=== PATIENT | female | born 1960 | race Caucasian/White ===

== ENCOUNTER 2016-08-29 10:54 | Emergency (ER) | payer OTHER ==
--- NOTE | 2016-08-29 11:51 | DIAGNOSTIC IMAGING REPORT ---
PROCEDURE: XR CHEST 2 VIEW INDICATION: SHORTNESS OF BREATH TECHNIQUE: PA and lateral views. COMPARISON: None. FINDINGS: Lungs are clear. Heart and mediastinum are normal. Thorax is normal. IMPRESSION: 1. Negative chest.
--- NOTE | 2016-08-29 13:32 | ED ORDER SUMMARY ---
..... Patient: DO HARRISON OrderSheet [facility] VisitID: [id number] [address] [place] [address] 56y, F Registration Date/Time: 08/29/2016 ORDER SHEET Weight: 76.2 kg (stated) Allergies: None GENERAL ORDERS: Chest 2V Urgent (:[facility]/2016 [facility] (Ack 11:44 LTapper) (11:48 JBoardley R.N.) Classification Clerk (Continuous) (08/29/2016 [facility]) (Ack 11:27 JBoardley R.N.) (11:53 JBoardley R.N.) UA-Culture if indicated Urgent (08/29/2016 PHakson DO) (Ack 11:44 LTapper) (11:53 JBoardley R.N.) Cardiac Panel Stat (08/29/[address] [facility] [address] (Ack 11:44 LTapper) (11:53 JBoardley R.N.) BNP Urgent (:08/29/2016 PHakchinson DO) (Ack 11:44 LTapper) (11:53 JBoardley R.N.) D-Dimer Urgent (08/29/2016 PHakchinson DO) (Ack 11:44 LTapper) (11:53 JBoardley R.N.) Amylase Urgent (08/29/2016 PHakchinson DO) (Ack 11:44 LTapper) (11:53 JBoardley R.N.) PT with INR Urgent (:08/29/2016 PHakchinson DO) (Ack 11:44 LTapper) (11:53 JBoardley R.N.) TSH Urgent (08/29/2016 PHakchinson DO) (Ack 11:44 LTapper) (11:53 JBoardley R.N.) Urine Drug Screen Urgent (08/29/2016 [facility] (Ack 11:44 LTapper) (11:53 JBoardley R.N.) Oxygen (2 L/min) (NC) (11:25 08/29/2016 [facility]) (Ack 11:27 JBoardley R.N.) (11:53 JBoardley R.N.) Pulse oximeter (11:08/29/2016 [facility]) (Ack 11:28 JBoardley R.N.) (11:53 JBoardley R.N.) EKG - ER Stat (11:08/29/2016 [facility]) (Ack 11:45 LTapper) (11:48 JBoardley R.N.) Vitals (11:08/29/2016 [facility]) (Ack 11:28 JBoardley R.N.) (11:53 JBoardley R.N.) MEDICATION ORDERS: IV FLUIDS: IV NS : initial bolus 500 mL (1000 mL/hr), then 250 mL/hr for X2 (NOW) (11:24 08/29/2016 [facility]) (Ack 11:27 JBoardley R.N.) (11:53 JBoardley R.N.) Zofran IV 4 mg (NOW) (13:46 08/29/2016 Radhay R.N. verbal order read back to [facility]) (13:47 JBoardley R.N.) ORDER SHEET NOTES: [Electronically signed by Demar Feliciano R.N. (18:46 08/29/2016)] [Electronically signed by Allan Nair DO (12:23 08/30/2016)] [Electronically locked/signed by Demar Feliciano R.N. (18:46 08/29/2016)]
--- NOTE | 2016-08-29 13:32 | ED CLINICAL REPORT ---
Clinical Report - Physicians/Mid Levels [facility] [address] [place] [address] 08/29/2016 10:59 Patient: DO HARRISON Time Seen: 11:10. Arrived- By private vehicle. Historian- patient. HISTORY OF PRESENT ILLNESS Chief Complaint: BLOOD PRESSURE ELEVATED. This started today and is still present. It was gradual in onset and has been waxing/waning. At its maximum, severity described as moderate. When seen in the E.D., severity described as mild. Modifying factors- (atenolol seems to have helped). The patient has had fatigue. Denies sleep problem. No muscle aches or weakness. (She notes some right neck pain- worse with movement or "pushing on it"). Similar symptoms previously: Recent medical care: Not recently seen/assessed. REVIEW OF SYSTEMS No fever, sore throat, cough, difficulty breathing or chest pain. No abdominal pain, nausea, vomiting, diarrhea or black stools. No bloody stools, chills, difficulty with urination, skin rash or back pain. No calf pain or double vision. The patient has had sinus drainage and nasal congestion. She has had a moderate, dull global headache. The headache has been similar to previous ones. No difficulty with ambulation. She has had mild, intermittent palpitations. The palpitations have lasted only seconds. The palpitations seem rapid. It has been similar to previous symptoms. All systems otherwise negative, except as recorded above. PAST HISTORY See nurses notes. Hypertension. PCP: Dr Vogel. Surgeries: Right lower extremity fracture repair (ankle). Medications: Atenolol Oral 100 mg, daily. Allergies: None. SOCIAL HISTORY Never smoker. No alcohol use or drug use. Residence: [place]. Patient is employed. (works at [employer]). ADDITIONAL NOTES The nursing notes have been reviewed. PHYSICAL EXAM Vital Signs: 08/29/2016 11:06 BP: 151/91. HR: 58. RR: 18. O2 saturation: 100%. Temp: 98.2 F. Appearance: Alert. Anxious. Patient in mild distress. Eyes: No scleral icterus or pale conjunctivae. ENT: Pharynx normal. No pharyngeal erythema or tonsillar exudate. The mucous membranes are not dry. Neck: Normal inspection. Neck supple. CVS: Normal heart rate and rhythm. Heart sounds normal. Pulses normal. Respiratory: No respiratory distress. Abdomen: No visible injury. Soft and nontender. Back: Normal inspection. Skin: Skin warm and dry. Normal skin color. Normal skin turgor. Extremities: Extremities exhibit normal ROM. No lower extremity edema. Neuro: Oriented X 3. No motor deficit. No sensory deficit. LABS, X-RAYS, AND EKG EKG: EKG time: (11:43). Normal sinus rhythm. Rate: 60. Normal P waves. Normal TONY. Normal QRS complex. Normal axis. Normal ST and T waves. The study has been interpreted contemporaneously by me. The EKG appears to be a good tracing. Laboratory Tests: UA-Culture if indicated: (KRISTAN: 08/29/2016 11:40) ( [facility] 08/29/2016 12:13) Final results Test Result Flag Units (Reference) URINE COLOR YELLOW URINE APPEARANCE CLEAR URINE GLUCOSE NEGATIVE (NEGATIVE) URINE BILIRUBIN NEGATIVE (NEGATIVE) URINE KETONE NEGATIVE (NEGATIVE) URINE SPECIFIC GRAVITY 1.010 (1.010-1.030) URINE PH 7.0 (5.0-8.0) URINE PROTEIN NEGATIVE (NEGATIVE) URINE UROBILINOGEN 0.2 EU/dL (0.2-1.0) URINE NITRITE NEGATIVE (NEGATIVE) URINE BLOOD NEGATIVE (NEGATIVE) URINE LEUK ESTERASE POSITIVE (NEGATIVE) URINE RBC NONE SEEN rbc/hpf (0-1) URINE WBC 1-3 wbc/hpf (0-1) URINE EPITHELIAL CELLS 1-3 EPI/hpf (0-5) URINE BACTERIA TRACE (<1+) (NONE SEEN) URINE COMMENT CULTURE INDICATED URINE CULTURES ARE SET-UP BASED ON THE FOLLOWING CRITERIA:POSITIVE NITRITEPOSITIVE LEUKOCYTE ESTERASEGREATER THAN 10 WHITE BLOOD CELLSMODERATE (2+) OR GREATER BACTERIA CBC w Diff: (KRISTAN: 08/29/2016 11:55) ( [facility] 08/29/2016 12:06) Final results Test Result Flag Units (Reference) WHITE BLOOD COUNT 11.2 K/uL (4.5-11.5) RED BLOOD COUNT 5.26 H M/uL (4.00-5.20) HEMOGLOBIN 14.9 gm/dL (12.0-16.0) HEMATOCRIT 45.3 % (36.0-46.0) MEAN CELL VOLUME 86 fL (80-100) MEAN CORPUSCULAR HGB 28 pg (26-34) MEAN CORPUSCULAR HGB CONC 33 g/dL (31-37) RED CELL DISTRIBUTION WIDTH 13.1 % (11.6-14.8) PLATELET COUNT 462 H K/uL (150-400) LYMPH % 15.0 L % (25-40) MONO % 2.8 L % (3-14) GRANULOCYTE % 82.2 (53-90) PT with INR: (KRISTAN: 08/29/2016 11:55) ( MsgRcvd 08/29/2016 12:18) Final results Test Result Flag Units (Reference) INR 1.0 (0.8-1.2) Low Intensity Therapy: INR 1.5-2.0 PT range 18.5-23.1Mod.Intensity Therapy: INR 2.0-3.0 PT range 23.1-31.5High Intensity Therapy: INR 2.5-3.5 PT range 27.4-35.5High Intensity Therapy 2: INR 3.0-4.0 PT range 31.5-39.3 D-DIMER QUANTITATIVE < 0.27 L ug/mLFEU (0.27-0.52) The primary value of this quantitative assay relates toits negative predictive value (i.e. exclusion) of pulmonaryembolism/deep vein thrombosis/DIC.Elevated levels of d-dimer may also occur with:, age, cancer, inflammation, liver disease,post-op, infection, hematoma, coronary disease, peripheralarteriopathy, bleeding disorders and thrombolytic treatment.Results should be correlated with other clinical andradiological data.Testing Methodology: Latex Immunoassay Urine Drug Screen: (KRISTAN: 08/29/2016 11:40) ( MsgRcvd 08/29/2016 12:15) Final results Test Result Flag Units (Reference) AMPHETAMINE/METHAMPHETAMINE NEGATIVE (NEGATIVE) BARBITURATE NEGATIVE (NEGATIVE) BENZODIAZEPINE NEGATIVE (NEGATIVE) CANNABINOID NEGATIVE (NEGATIVE) COCAINE NEGATIVE (NEGATIVE) ECSTASY NEGATIVE (NEGATIVE) METHADONE NEGATIVE (NEGATIVE) OPIATE NEGATIVE (NEGATIVE) The urine drug screen is a qualitative screening test fordrug overdose and abuse. All screen results should beconsidered as presumptive.Drugs screened for are as follows:BenzodiazepinesCocaineAmphetamines/MetamphetaminesTHC (Tetrahydrocannabinol)OpiatesBarbituratesEcstasyMethadonePositive results are unconfirmed. For confirmation, notifythe lab for the specimen to be sent to the reference lab.All confirmations must be performed by a differentmethodology.The ingestion of natural herbal and plant productscontaining Ephedra/Ephedra metabolites can produce in urineone or more substances capable of cross reacting withamphetamine/methamphetamine immunoassays. These testsprovide a preliminary result only. A more specificalternative chemical method must be used to obtain aconfirmed analytical result. BNP: (KRISTAN: 08/29/2016 11:55) ( [facility] 08/29/2016 12:35) Final results Test Result Flag Units (Reference) B-TYPE NATRIURETIC PEPTIDE 18.9 pg/ml (5-100) CHEM 13 PANEL: (KRISTAN: 08/29/2016 11:55) ( [facility] 08/29/2016 14:29) Final results Test Result Flag Units (Reference) GLUCOSE 105 mg/dL (70-110) BUN 10 mg/dL (7-18) CREATININE 0.8 mg/dL (0.6-1.3) Estimated GFR >60 mL/min Estimated GFR- >60 mL/min Note: Persistent reduction over 3 months in eGFR<60 mL/min/1.73 m2 defines CKD. Patients with eGFR values>=60 mL/min/1.73 m2 may also have CKD if evidence ofpersistent proteinuria. Additional information may be foundat www.kidney.org. SODIUM 142 mmol/L (136-145) POTASSIUM 4.0 mmol/L (3.5-5.1) CHLORIDE 106 mmol/L (98-107) CARBON DIOXIDE 26 mmol/L (21-32) CALCIUM 9.9 mg/dL (8.5-10.1) TOTAL PROTEIN 7.9 g/dL (6.4-8.2) ALBUMIN 4.0 g/dL (3.3-5.0) BILIRUBIN, TOTAL 0.7 mg/dL (0.0-1.0) ALKALINE PHOSPHATASE 77 U/L (46-116) AST (SGOT) 28 U/L (15-37) ALT (SGPT) 39 U/L (12-78) MAGNESIUM 2.2 mg/dL (1.8-2.4) AMYLASE 98 U/L (25-115) CPK 193 U/L (24-260) TROPONIN I <0.05 ng/mL (0.00-1.5) TROPONIN REFERENCE RANGE:<0.1 NEGATIVE0.1-1.5 INDETERMINANT>1.5 POSITIVE THYROID STIMULATING HORMONE 0.990 uIU/mL (0.30-3.74) Culture, Urine: (KRISTAN: 08/29/2016 11:40) ( MsgRcvd 08/30/2016 10:06) IP Test Result Flag Units (Reference) CULTURE, URINE DATE: 08/30/16 PRELIM REPORT: PRELIMINARY REPORT #1 VERY EARLY GROWTH: VERY EARLY GROWTH: CULTURE TOO YOUNG FOR WORKUP-REINCUBATED . Pulse Oximetry: 08/29/2016 11:06 O2 saturation: 100%. (FIO2 - room air). Interpretation: normal. PROGRESS AND PROCEDURES Course of Care: Normal Saline 1 liter IVPB given. Pt had episode of sinus bradycardia (HR 45), no other ectopy. Unclear if she had a vagal episode causing the bradycardia. She had had URI symptoms which may cause nausea (viral syndrome) which may have vagal stimulation. Patient/family counseled. Disposition: Discharged. Condition: stable and improved. CLINICAL IMPRESSION Moderate nausea. No vomiting. Acute dizziness Essential hypertension. Acute urinary tract infection with cystitis. Acute viral (presumed) rhinitis. Acute viral syndrome INSTRUCTIONS (No driving if any symptoms of lightheadedness). Rest. Do not work for three days. Drink plenty of fluids. Warnings: Further evaluation is necessary in order to recheck abnormal lab, obtain test results and conduct further tests. It is very important to follow up with a physician. GENERAL WARNINGS: Return or contact your physician immediately if your condition worsens or changes unexpectedly, if not improving as expected, or if other problems arise. Your Current Medications: CONTINUE TAKING THE FOLLOWING MEDICATIONS: Atenolol Oral : 100 mg daily. Prescription Medications: Zofran (orally disintegrating tablets) 4 mg: take 1 orally every 6 hours as needed for nausea and vomiting. Dispense five (5). No refill. Substitution is permissible. Macrobid 100 mg: Take 1 capsule orally every 12 hours for 7 days. No refills. Substitution is permissible. Follow-up: Follow up with your doctor ; Address: [address] [place], [place] [address] [address] in about two days. Screening today revealed the patient's blood pressure to be in the hypertensive range. The patient should follow up with a primary care provider for blood pressure management. (Electronically signed by Allan Nair DO 08/30/2016 12:23)
--- NOTE | 2016-08-29 13:32 | ED NURSING NOTES ---
Clinical Report - Nurses [facility] [address] [place] [address] 08/29/2016 10:59 Patient: OD HARRISON TRIAGE Triage time 11:06. Acuity: LEVEL 4. Chief Complaint: (High Blood Pressure). 11:08/29/16. 11:08/29/16. Alert. No acute distress. SEPSIS SCREEN: Sepsis Screen. Negative (no infection suspected/documented). BENEDICT COMA SCORE: Hawthorne Coma Scale: 15- eyes open spontaneously (4); best verbal response- oriented x 4 (5); best motor response- obeys commands (6). --11:10 Demar Feliciano R.N. 11:06 08/29/16. BP: 151/91. HR: 58. RR: 18. O2 saturation: 100% on room air. Temp: 98.2 F (oral). --11:10 Demar Feliciano R.N. Weight: 76.2 kg stated. Height/Length: 62 inches Per Patient. BMI: 30.8. --11:08 Demar Feliciano R.N. Medications Atenolol Oral 100 mg, daily. --11:09 Demar Feliciano R.N. Medication/allergy information source: the patient. --11:10 Demar Feliciano R.N. Allergies None. --11:09 Demar Feliciano R.N. History Arrived by private vehicle. Historian: patient. Unaccompanied. Primary physician (Vogel). 11:08 08/29/16. This started today. Treatment LOCAL [employer]S ADMINSTRATOR: (Atenolol at 0600). PAST MEDICAL HX: Immunizations: up-to-date. SOCIAL HX: Never smoker. No alcohol use or drug use. No infectious disease exposure. ABUSE ASSESSMENT: No report of abuse. FALL RISK ASSESSMENT: Fall risk assessment completed. No fall risk identified. NUTRITIONAL RISK ASSESSMENT: The nutritional risk assessment revealed no deficiencies. FUNCTIONAL ASSESSMENT: Functional assessment: no impairments noted. LEARNING NEEDS ASSESSMENT: The learning needs assessment revealed no barriers. SKIN INTEGRITY ASSESSMENT: Skin integrity risk assessment completed. No skin integrity risk identified. --11:10 Demar Feliciano R.N. PROBLEMS: Hypertension. --11: Demar Feliciano R.N. ADDITIONAL SURGERIES: Ankle. --11:09 Demar Feliciano R.N. Assessment 11:08 08/29/16. --11:10 Demar Feliciano R.N. Interventions 11:08/29/16. 11:08/29/16. ID and allergy band on patient. To treatment room. --11:10 Demar Feliciano R.N. PHYSICAL ASSESSMENT 11:08/29/16. GENERAL / NEURO / PSYCH: Alert. Oriented X 4. Appears in no acute distress. RESPIRATORY: Respirations not labored. SKIN: Skin is warm and dry. --11:10 Demar Feliciano R.N. 11:12 08/29/16. GENERAL / NEURO / PSYCH: ( c/o SON). --11:12 Demar Feliciano R.N. NURSING PROGRESS NOTES 11:08/29/16. The plan of care for this patient has been created. Pulse oximeter and NIBP monitor placed on patient. Patient gowned. Head of bed elevated. Two patient identifiers checked. Call light placed in reach. Side rails up x 2. Bed placed in lowest position. Brakes of bed on. Brakes of chair on. --11:11 Demar Feliciano R.N. 11:08/29/16. Patient ready for evaluation- chart flagged and notification provided. --11:11 Demar Feliciano R.N. 11:11 08/29/16. BP: 151/73. HR: 52. RR: 14. O2 saturation: 100% on room air. --11:11 Demar Feliciano R.N. 11:11 08/29/16. --11:11 Demar Feliciano R.N. 11:43 08/29/2016 Site #1 started via IV in the right antecubital space with an 20g angiocath, with aseptic technique and good blood return; one attempt. Blood drawn: rainbow set. Labeled in the presence of the patient and sent to the lab. Saline lock flushed with 10 mL saline. --11:53 Demar Feliciano R.N. 11:48 08/29/16. ( X-ray completed). --11:48 Demar Feliciano R.N. 11:48 08/29/16. Patient ID band checked for patient name and birthdate. Clean catch urine collected with return of whitley-colored urine; sample sent to lab for urinalysis, culture and drug screen. Specimen labeled in the presence of the patient. --11:48 Demar Feliciano R.N. 11:53 08/29/2016 Started bag #1 1000 mL IV Fluids IV NS (Saline); at 1000 mL/hr over 1 hour(s) via site #1 via IV pump. Allergies verified and confirmed 5 rights. IV patency established. IV site checked: no pain, redness, or swelling. IV flushed thoroughly pre- and post-medication administration. Completed per protocol. --11:53 Demar Feliciano R.N. 11:57 08/29/16. Cardiac rhythm: sinus bradycardia. The plan of care for this patient has been created. gambling monitor, pulse oximeter and NIBP monitor placed on patient; monitor alarms on. Head of bed elevated. --11:57 Demar Feliciano R.N. 11:56 08/29/16. BP: 131/75. HR: 53. RR: 20. O2 saturation: 100%. O2 started via nasal cannula at 2 liters/minute. Temp: 98.2 F (oral). --11:57 Demar Feliciano R.N. 11:57 08/29/16. Patient and family informed about reason for wait and about plan of care. --11:57 Demar Feliciano R.N. EKG time: (11:43 AM). EKG was performed by a tech and shown to the ED physician. --12:33 Yumiko Barrera 12:23 08/29/2016 IV Fluids IV NS via IV site #1 Rate Changed: bag #1 decreased to 250 mL/hr via IV pump. IV patency established. IV site checked: no pain, redness, or swelling. IV flushed thoroughly. --12:33 Demar Feliciano R.N. 13:03 08/29/16. BP: 138/87. HR: 44. RR: 18. O2 saturation: 100% on room air. --13:04 Demar Feliciano R.N. 13:04 08/29/16. Cardiac rhythm: sinus bradycardia. --13:04 Demar Feliciano R.N. 13:05 08/29/2016 IV Fluids IV NS Discontinued: bag #1 infused. Total amount infused: 1000 mL. IV patency established. IV site checked: no pain, redness, or swelling. IV flushed thoroughly. --13:05 Demar Feliciano R.N. 13:18 08/29/16. Patient informed about reason for wait and about plan of care. --13:18 Demar Feliciano R.N. 13:18 08/29/16. ED physician notified. Notified (bradycardia). --13:18 Demar Feliciano R.N. 13:18 08/29/16. Notified about vital signs and symptom. --13:18 Demar Feliciano R.N. 13:47 08/29/2016 Zofran (Ondansetron HCl) IVP 4 mg given over 2 minute(s) via site #1. Allergies verified and confirmed 5 rights. IV patency established. IV site checked: no pain, redness, or swelling. IV flushed thoroughly pre- and post-medication administration. IVP given by RN. --13:47 Demar Feliciano R.N. 13:47 08/29/16. --13:47 Demar Feliciano R.N. 13:47 08/29/16. BP: 115/68. HR: 47. RR: 16. O2 saturation: 100%. O2 started via nasal cannula at 2 liters/minute. --13:47 Demar Feliciano R.N. 13:48 08/29/16. Cardiac rhythm: sinus bradycardia. --13:48 Demar Feliciano R.N. DISPOSITION / DISCHARGE 14:15 08/29/16. BP: 112/64. HR: 59. RR: 17. O2 saturation: 100% on room air. Temp: 97.8 F (oral). Pain level now 0/10. --14:16 Kyle Veloz R.N. 14:12 08/29/2016 Site #1 removed upon discharge. Catheter intact. Bandage applied. --14:17 Kyle Veloz R.N. 14:16 08/29/16. Cardiac rhythm: sinus rhythm. Condition at departure: improved and stable. No learning barriers present. Discharge instructions provided and reviewed with the patient. Reviewed medication(s) side effects, precautions, dosing and course information. Prescription(s) given to the patient. Patient verbalized understanding. Written instructions provided in Serbian. The patient was discharged by the physician. She was discharged home. She left the Emergency Department ambulatory and via private vehicle. Patient driving. --14:16 Kyle Veloz R.N. Locked/Released at 08/29/2016 18:46 by Demar Feliciano R.N.
--- NOTE | 2016-08-29 13:32 | ED CLINICAL REPORT ---
Clinical Report - Physicians/Mid Levels [address] [place] [address] 08/29/2016 10:59 Patient: DO HARRISON Time Seen: 11:10. Arrived- By private vehicle. Historian- patient. HISTORY OF PRESENT ILLNESS Chief Complaint: BLOOD PRESSURE ELEVATED. This started today and is still present. It was gradual in onset and has been waxing/waning. At its maximum, severity described as moderate. When seen in the E.D., severity described as mild. Modifying factors- (atenolol seems to have helped). The patient has had fatigue. Denies sleep problem. No muscle aches or weakness. (She notes some right neck pain- worse with movement or "pushing on it"). Similar symptoms previously: Recent medical care: Not recently seen/assessed. REVIEW OF SYSTEMS No fever, sore throat, cough, difficulty breathing or chest pain. No abdominal pain, nausea, vomiting, diarrhea or black stools. No bloody stools, chills, difficulty with urination, skin rash or back pain. No calf pain or double vision. The patient has had sinus drainage and nasal congestion. She has had a moderate, dull global headache. The headache has been similar to previous ones. No difficulty with ambulation. She has had mild, intermittent palpitations. The palpitations have lasted only seconds. The palpitations seem rapid. It has been similar to previous symptoms. All systems otherwise negative, except as recorded above. PAST HISTORY See nurses notes. Hypertension. PCP: Dr Vogel. Surgeries: Right lower extremity fracture repair (ankle). Medications: Atenolol Oral 100 mg, daily. Allergies: None. SOCIAL HISTORY Never smoker. No alcohol use or drug use. Residence: [place]. Patient is employed. (works at [employer]). ADDITIONAL NOTES The nursing notes have been reviewed. PHYSICAL EXAM Vital Signs: 08/29/2016 11:06 BP: 151/91. HR: 58. RR: 18. O2 saturation: 100%. Temp: 98.2 F. Appearance: Alert. Anxious. Patient in mild distress. Eyes: No scleral icterus or pale conjunctivae. ENT: Pharynx normal. No pharyngeal erythema or tonsillar exudate. The mucous membranes are not dry. Neck: Normal inspection. Neck supple. CVS: Normal heart rate and rhythm. Heart sounds normal. Pulses normal. Respiratory: No respiratory distress. Abdomen: No visible injury. Soft and nontender. Back: Normal inspection. Skin: Skin warm and dry. Normal skin color. Normal skin turgor. Extremities: Extremities exhibit normal ROM. No lower extremity edema. Neuro: Oriented X 3. No motor deficit. No sensory deficit. LABS, X-RAYS, AND EKG EKG: EKG time: (11:43). Normal sinus rhythm. Rate: 60. Normal P waves. Normal TONY. Normal QRS complex. Normal axis. Normal ST and T waves. The study has been interpreted contemporaneously by me. The EKG appears to be a good tracing. Laboratory Tests: UA-Culture if indicated: (KRISTAN: 08/29/2016 11:40) ( [facility] 08/29/2016 12:13) Final results Test Result Flag Units (Reference) URINE COLOR YELLOW URINE APPEARANCE CLEAR URINE GLUCOSE NEGATIVE (NEGATIVE) URINE BILIRUBIN NEGATIVE (NEGATIVE) URINE KETONE NEGATIVE (NEGATIVE) URINE SPECIFIC GRAVITY 1.010 (1.010-1.030) URINE PH 7.0 (5.0-8.0) URINE PROTEIN NEGATIVE (NEGATIVE) URINE UROBILINOGEN 0.2 EU/dL (0.2-1.0) URINE NITRITE NEGATIVE (NEGATIVE) URINE BLOOD NEGATIVE (NEGATIVE) URINE LEUK ESTERASE POSITIVE (NEGATIVE) URINE RBC NONE SEEN rbc/hpf (0-1) URINE WBC 1-3 wbc/hpf (0-1) URINE EPITHELIAL CELLS 1-3 EPI/hpf (0-5) URINE BACTERIA TRACE (<1+) (NONE SEEN) URINE COMMENT CULTURE INDICATED URINE CULTURES ARE SET-UP BASED ON THE FOLLOWING CRITERIA:POSITIVE NITRITEPOSITIVE LEUKOCYTE ESTERASEGREATER THAN 10 WHITE BLOOD CELLSMODERATE (2+) OR GREATER BACTERIA CBC w Diff: (KRISTAN: 08/29/2016 11:55) ( [facility] 08/29/2016 12:06) Final results Test Result Flag Units (Reference) WHITE BLOOD COUNT 11.2 K/uL (4.5-11.5) RED BLOOD COUNT 5.26 H M/uL (4.00-5.20) HEMOGLOBIN 14.9 gm/dL (12.0-16.0) HEMATOCRIT 45.3 % (36.0-46.0) MEAN CELL VOLUME 86 fL (80-100) MEAN CORPUSCULAR HGB 28 pg (26-34) MEAN CORPUSCULAR HGB CONC 33 g/dL (31-37) RED CELL DISTRIBUTION WIDTH 13.1 % (11.6-14.8) PLATELET COUNT 462 H K/uL (150-400) LYMPH % 15.0 L % (25-40) MONO % 2.8 L % (3-14) GRANULOCYTE % 82.2 (53-90) PT with INR: (KRISTAN: 08/29/2016 11:55) ( MsgRcvd 08/29/2016 12:18) Final results Test Result Flag Units (Reference) INR 1.0 (0.8-1.2) Low Intensity Therapy: INR 1.5-2.0 PT range 18.5-23.1Mod.Intensity Therapy: INR 2.0-3.0 PT range 23.1-31.5High Intensity Therapy: INR 2.5-3.5 PT range 27.4-35.5High Intensity Therapy 2: INR 3.0-4.0 PT range 31.5-39.3 D-DIMER QUANTITATIVE < 0.27 L ug/mLFEU (0.27-0.52) The primary value of this quantitative assay relates toits negative predictive value (i.e. exclusion) of pulmonaryembolism/deep vein thrombosis/DIC.Elevated levels of d-dimer may also occur with:, age, cancer, inflammation, liver disease,post-op, infection, hematoma, coronary disease, peripheralarteriopathy, bleeding disorders and thrombolytic treatment.Results should be correlated with other clinical andradiological data.Testing Methodology: Latex Immunoassay Urine Drug Screen: (KRISTAN: 08/29/2016 11:40) ( MsgRcvd 08/29/2016 12:15) Final results Test Result Flag Units (Reference) AMPHETAMINE/METHAMPHETAMINE NEGATIVE (NEGATIVE) BARBITURATE NEGATIVE (NEGATIVE) BENZODIAZEPINE NEGATIVE (NEGATIVE) CANNABINOID NEGATIVE (NEGATIVE) COCAINE NEGATIVE (NEGATIVE) ECSTASY NEGATIVE (NEGATIVE) METHADONE NEGATIVE (NEGATIVE) OPIATE NEGATIVE (NEGATIVE) The urine drug screen is a qualitative screening test fordrug overdose and abuse. All screen results should beconsidered as presumptive.Drugs screened for are as follows:BenzodiazepinesCocaineAmphetamines/MetamphetaminesTHC (Tetrahydrocannabinol)OpiatesBarbituratesEcstasyMethadonePositive results are unconfirmed. For confirmation, notifythe lab for the specimen to be sent to the reference lab.All confirmations must be performed by a differentmethodology.The ingestion of natural herbal and plant productscontaining Ephedra/Ephedra metabolites can produce in urineone or more substances capable of cross reacting withamphetamine/methamphetamine immunoassays. These testsprovide a preliminary result only. A more specificalternative chemical method must be used to obtain aconfirmed analytical result. BNP: (KRISTAN: 08/29/2016 11:55) ( [facility] 08/29/[facility] 12:35) Final results Test Result Flag Units (Reference) B-TYPE NATRIURETIC PEPTIDE 18.9 pg/ml (5-100) CHEM 13 PANEL: (KRISTAN: 08/29/2016 11:55) ( [facility] [place] 14:29) Final results Test Result Flag Units (Reference) GLUCOSE 105 mg/dL (70-110) BUN 10 mg/dL (7-18) CREATININE 0.8 mg/dL (0.6-1.3) Estimated GFR >60 mL/min Estimated GFR- >60 mL/min Note: Persistent reduction over 3 months in eGFR<60 mL/min/1.73 m2 defines CKD. Patients with eGFR values>=60 mL/min/1.73 m2 may also have CKD if evidence ofpersistent proteinuria. Additional information may be foundat www.kidney.org. SODIUM 142 mmol/L (136-145) POTASSIUM 4.0 mmol/L (3.5-5.1) CHLORIDE 106 mmol/L (98-107) CARBON DIOXIDE 26 mmol/L (21-32) CALCIUM 9.9 mg/dL (8.5-10.1) TOTAL PROTEIN 7.9 g/dL (6.4-8.2) ALBUMIN 4.0 g/dL (3.3-5.0) BILIRUBIN, TOTAL 0.7 mg/dL (0.0-1.0) ALKALINE PHOSPHATASE 77 U/L (46-116) AST (SGOT) 28 U/L (15-37) ALT (SGPT) 39 U/L (12-78) MAGNESIUM 2.2 mg/dL (1.8-2.4) AMYLASE 98 U/L (25-115) CPK 193 U/L (24-260) TROPONIN I <0.05 ng/mL (0.00-1.5) TROPONIN REFERENCE RANGE:<0.1 NEGATIVE0.1-1.5 INDETERMINANT>1.5 POSITIVE THYROID STIMULATING HORMONE 0.990 uIU/mL (0.30-3.74) Culture, Urine: (KRISTAN: 08/29/2016 11:40) ( MsgRcvd 08/30/2016 10:06) IP Test Result Flag Units (Reference) CULTURE, URINE DATE: 08/30/16 PRELIM REPORT: PRELIMINARY REPORT #1 VERY EARLY GROWTH: VERY EARLY GROWTH: CULTURE TOO YOUNG FOR WORKUP-REINCUBATED . Pulse Oximetry: 08/29/2016 11:06 O2 saturation: 100%. (FIO2 - room air). Interpretation: normal. PROGRESS AND PROCEDURES Course of Care: Normal Saline 1 liter IVPB given. Pt had episode of sinus bradycardia (HR 45), no other ectopy. Unclear if she had a vagal episode causing the bradycardia. She had had URI symptoms which may cause nausea (viral syndrome) which may have vagal stimulation. Patient/family counseled. Disposition: Discharged. Condition: stable and improved. CLINICAL IMPRESSION Moderate nausea. No vomiting. Acute dizziness Essential hypertension. Acute urinary tract infection with cystitis. Acute viral (presumed) rhinitis. Acute viral syndrome INSTRUCTIONS (No driving if any symptoms of lightheadedness). Rest. Do not work for three days. Drink plenty of fluids. Warnings: Further evaluation is necessary in order to recheck abnormal lab, obtain test results and conduct further tests. It is very important to follow up with a physician. GENERAL WARNINGS: Return or contact your physician immediately if your condition worsens or changes unexpectedly, if not improving as expected, or if other problems arise. Your Current Medications: CONTINUE TAKING THE FOLLOWING MEDICATIONS: Atenolol Oral : 100 mg daily. Prescription Medications: Zofran (orally disintegrating tablets) 4 mg: take 1 orally every 6 hours as needed for nausea and vomiting. Dispense five (5). No refill. Substitution is permissible. Macrobid 100 mg: Take 1 capsule orally every 12 hours for 7 days. No refills. Substitution is permissible. Follow-up: Follow up with your doctor ; Address: [address] [place], [place] [address] [address] in about two days. Screening today revealed the patient's blood pressure to be in the hypertensive range. The patient should follow up with a primary care provider for blood pressure management. (Electronically signed by Allan Nair DO 08/30/2016 12:23)
--- NOTE | 2016-08-29 13:32 | ED ORDER SUMMARY ---
..... Patient: DO HARRISON OrderSheet [facility] VisitID: [id number] [address] [place] [address] 56y, F Registration Date/Time: 08/29/2016 ORDER SHEET Weight: 76.2 kg (stated) Allergies: None GENERAL ORDERS: Chest 2V Urgent (:[facility]/29/2016 [facility] (Ack 11:44 LTapper) (11:48 JBoardley R.N.) [address] Foreman (Continuous) (08/29/2016 [facility] (Ack 11:27 JBoardley R.N.) (11:53 JBoardley R.N.) UA-Culture if indicated Urgent (08/29/2016 PHmoson DO) (Ack 11:44 LTapper) (11:53 JBoardley R.N.) Cardiac Panel Stat (08/29/2016 [facility] (Ack 11:44 LTapper) (11:53 JBoardley R.N.) BNP Urgent (:08/29/2016 PHmochinson DO) (Ack 11:44 LTapper) (11:53 JBoardley R.N.) D-Dimer Urgent (08/29/2016 PHmochinson DO) (Ack 11:44 LTapper) (11:53 JBoardley R.N.) Amylase Urgent (08/29/2016 PHmochinson DO) (Ack 11:44 LTapper) (11:53 JBoardley R.N.) PT with INR Urgent (:08/29/2016 PHmochinson DO) (Ack 11:44 LTapper) (11:53 JBoardley R.N.) TSH Urgent (08/29/2016 PHmochinson DO) (Ack 11:44 LTapper) (11:53 JBoardley R.N.) Urine Drug Screen Urgent ([facility]/2016 [facility]) (Ack 11:44 LTapper) (11:53 JBoardley R.N.) Oxygen (2 L/min) (NC) (11:25 08/29/2016 [facility]) (Ack 11:27 JBoardley R.N.) (11:53 JBoardley R.N.) Pulse oximeter (11:08/29/2016 [facility]) (Ack 11:28 JBoardley R.N.) (11:53 JBoardley R.N.) EKG - ER Stat (11:08/29/2016 [facility]) (Ack 11:45 LTapper) (11:48 JBoardley R.N.) Vitals (11:08/29/2016 [facility]) (Ack 11:28 JBoardley R.N.) (11:53 JBoardley R.N.) MEDICATION ORDERS: IV FLUIDS: IV NS : initial bolus 500 mL (1000 mL/hr), then 250 mL/hr for X2 (NOW) (11:24 08/29/2016 [facility]) (Ack 11:27 JBoardley R.N.) (11:53 JBoardley R.N.) Zofran IV 4 mg (NOW) (13:46 08/29/2016 Radhay R.N. verbal order read back to [facility]) (13:47 JBoardley R.N.) ORDER SHEET NOTES: [Electronically signed by Demar Feliciano R.N. (18:46 08/29/2016)] [Electronically signed by Allan Nair DO (12:23 08/30/2016)] [Electronically locked/signed by Demar Feliciano R.N. (18:46 08/29/2016)]
--- NOTE | 2016-08-30 12:23 | ED MED RECONCILIATION SUMMARY ---
Patient: DO HARRISON Medication Reconciliation Report [facility] VisitID: [id number] [address] [place] [address] 56y, F Registration Date/Time: 08/29/2016 Weight: 76.2 kg Height/Length: 62 in. BMI: 30.8 ALLERGIES: None The patient's Home Medications are listed below: CONTINUE TAKING THE FOLLOWING MEDICATIONS: Atenolol Oral 100 mg, daily The source(s) of the original Home Medication information: patient The following Medications were given to the patient in the Emergency Department: IV NS IV Fluids bolus 0, then 1000 mL/hr, administered: 08/29/2016 11:53:00 AM Zofran [IVP] IVP 4 mg, administered: 08/29/2016 1:47:00 PM The following Medications were prescribed to the patient: Zofran (orally disintegrating tablets) 4 mg: take 1 orally every 6 hours as needed for nausea and vomiting. Dispense five (5). No refill. Substitution is permissible. -- Allan Nair DO Macrobid 100 mg: Take 1 capsule orally every 12 hours for 7 days. No refills. Substitution is permissible. -- Allan Nair DO
--- NOTE | 2016-08-30 12:23 | ED MED RECONCILIATION SUMMARY ---
Patient: DO HARRISON Medication Reconciliation Report [facility] VisitID: [id number] [address] [place] [address] 56y, F Registration Date/Time: 08/29/2016 Weight: 76.2 kg Height/Length: 62 in. BMI: 30.8 ALLERGIES: None The patient's Home Medications are listed below: CONTINUE TAKING THE FOLLOWING MEDICATIONS: Atenolol Oral 100 mg, daily The source(s) of the original Home Medication information: patient The following Medications were given to the patient in the Emergency Department: IV NS IV Fluids bolus 0, then 1000 mL/hr, administered: 08/29/2016 11:53:00 AM Zofran [IVP] IVP 4 mg, administered: 08/29/2016 1:47:00 PM The following Medications were prescribed to the patient: Zofran (orally disintegrating tablets) 4 mg: take 1 orally every 6 hours as needed for nausea and vomiting. Dispense five (5). No refill. Substitution is permissible. -- Allan Nair DO Macrobid 100 mg: Take 1 capsule orally every 12 hours for 7 days. No refills. Substitution is permissible. -- Allan Nair DO
--- NOTE | 2016-08-30 12:23 | ED MAR SUMMARY ---
..... Medication Administration Record [facility] [address] [place] [address] Patient: DO HARRISON Visit ID: [id number] 56y, F Weight: 76.2 kg Height/Length: 62 in BMI: 30.8 ALLERGIES: None Start 11:53 08/29/2016 Demar Feliciano R.N., Stop 13:05 08/29/2016 Demar Feliciano R.N. Medication Administered: IV NS (SALINE), Dose: IV Fluids over 1 hour(s), Rate: 1000 mL/hr, Dispensed: 1000 mL bag, Site: #1 right AC. Medication Ordered: IV NS : initial bolus 500 mL (1000 mL/hr), then 250 mL/hr for X2 (NOW). Given 13:47 08/29/2016 Demar Feliciano R.N. Medication Administered: ZOFRAN [IVP] (ONDANSETRON HCL), Dose: 4 mg IVP over 2 minute(s), Site: #1 right AC. Medication Ordered: Zofran IV 4 mg (NOW).
--- NOTE | 2016-08-30 12:23 | ED MAR SUMMARY ---
..... Medication Administration Record [facility] [address] [place] [address] Patient: DO HARRISON Visit ID: [id number] 56y, F Weight: 76.2 kg Height/Length: 62 in BMI: 30.8 ALLERGIES: None Start 11:53 08/29/2016 Demar Feliciano R.N., Stop 13:05 08/29/2016 Demar Feliciano R.N. Medication Administered: IV NS (SALINE), Dose: IV Fluids over 1 hour(s), Rate: 1000 mL/hr, Dispensed: 1000 mL bag, Site: #1 right AC. Medication Ordered: IV NS : initial bolus 500 mL (1000 mL/hr), then 250 mL/hr for X2 (NOW). Given 13:47 08/29/2016 Demar Feliciano R.N. Medication Administered: ZOFRAN [IVP] (ONDANSETRON HCL), Dose: 4 mg IVP over 2 minute(s), Site: #1 right AC. Medication Ordered: Zofran IV 4 mg (NOW).
--- NOTE | 2016-08-30 12:23 | ED DISCHARGE INSTRUCTIONS ---
Patient: DO HARRISON General Instructions [facility] VisitID: [id number] [place] [address] 56y, F Registration Date/Time: 08/29/2016 Moderate nausea. No vomiting. Acute dizziness Essential hypertension. Acute urinary tract infection with cystitis. Acute viral (presumed) rhinitis. Acute viral syndrome INSTRUCTIONS (No driving if any symptoms of lightheadedness). Rest. Do not work for three days. Drink plenty of fluids. Warnings: Further evaluation is necessary in order to recheck abnormal lab, obtain test results and conduct further tests. It is very important to follow up with a physician. GENERAL WARNINGS: Return or contact your physician immediately if your condition worsens or changes unexpectedly, if not improving as expected, or if other problems arise. Your Current Medications: CONTINUE TAKING THE FOLLOWING MEDICATIONS: Atenolol Oral : 100 mg daily. Prescription Medications: Zofran (orally disintegrating tablets) 4 mg: take 1 orally every 6 hours as needed for nausea and vomiting. Dispense five (5). No refill. Substitution is permissible. Macrobid 100 mg: Take 1 capsule orally every 12 hours for 7 days. No refills. Substitution is permissible. Follow-up: Follow up with your doctor ; Address: [address], [place] [address] in about two days. Screening today revealed the patient's blood pressure to be in the hypertensive range. The patient should follow up with a primary care provider for blood pressure management. ADDITIONAL INFORMATION High Blood Pressure --Established High Blood Pressure (Hypertension) is a chronic disease. The cause is unknown in most cases. It can usually be controlled with lifestyle changes and/or medicines. Symptoms of high blood pressure may include headache, dizziness, visual changes, chest pain and shortness of breath. Sometimes it causes no symptoms at all. However, even if there are no symptoms, untreated high blood pressure increases the risk of heart attack, also known as acute myocardial infarction, or AMI, and stroke. It is a serious health risk and should not be ignored. A normal blood pressure is 120/80 or less. The first (top) number is the "systolic" pressure. The second (bottom) number is the "diastolic" pressure. Hypertension exists when either the top number is 140 or higher, OR the bottom number is 90 or higher on repeated measurements. Home Care: All patients with high blood pressure should do the following to lower their pressure. If you are on medicines, then these methods may reduce or eliminate your need for medicines in the future. Begin a weight loss program if you are overweight. Reduce your salt intake. Avoid high salt foods (olives, pickles, smoked meats, salted potato chips, etc.). Do not add salt to your food at the table. Use only small amounts of salt when cooking. Begin an exercise program. Discuss with your doctor what type of exercise program would be best for you. It doesn't have to be difficult. Even brisk walking for 20 minutes three times a week is a good form of exercise. Avoid medicines which contain heart stimulants. This includes many cold and sinus decongestant pills and sprays as well as diet pills. Check the warnings about hypertension on the label. Stimulants such as amphetamine or cocaine could be lethal for someone with hypertension. Never take these. Limit your caffeine intake or switch to caffeine-free products. Stop smoking. If you are a long-time smoker, this can be hard. Enroll in a stop-smoking program to improve your chance of success. Learning how to handle stress better is an important part of any program to lower blood pressure. Learn about relaxation methods such as meditation, yoga or biofeedback. If medicines were prescribed, take them exactly as directed. Missing doses may cause your blood pressure get out of control. Consider buying an automatic blood pressure machine (available at most pharmacies). Use this to monitor your blood pressure at home and report the results to your doctor. Follow Up: Regular visits to your own physician for blood pressure checks and medicine adjustment is an important part of your care. Make a follow-up appointment as directed by our staff. Get Prompt Medical Attention if any of the following occur: Chest pain or shortness of breath Severe headache Throbbing or rushing sound in the ears Nosebleed Sudden severe abdominal pain Extreme drowsiness, confusion or fainting Dizziness or vertigo (dizziness with spinning sensation) Weakness of an arm or leg or one side of the face Difficulty with speech or vision Bladder Infection,Female (Adult) A bladder infection ("cystitis" or "UTI") usually causes a constant urge to urinate and a burning when passing urine. Urine may be cloudy, smelly or dark. There may be pain in the lower abdomen. A bladder infection occurs when bacteria from the vaginal area enter the bladder opening (urethra). This can occur from sexual intercourse, wearing tight clothing, dehydration and other factors. Home Care: Drink lots of fluids (at least 6-8 glasses a day, unless you must restrict fluids for other medical reasons). This will force the medicine into your urinary system and flush the bacteria out of your body. Avoid sexual intercourse until your symptoms are gone. Avoid caffeine, alcohol and spicy foods. These can irritate the bladder. A bladder infection is treated with antibiotics. You may also be given Pyridium (generic = phenazopyridine) to reduce the burning sensation. This medicine will cause your urine to become a bright orange color. The orange urine may stain clothing. You may wear a pad or panty-liner to protect clothing. Preventing Future Infections: Always wipe from front to back after a bowel movement. Keep the genital area clean and dry. Drink plenty of fluids each day to avoid dehydration. Both sexual partners should wash before intercourse. Urinate right after intercourse to flush out the bladder. Wear cotton underwear and cotton-lined panty hose; avoid tight-fitting pants. If you are on control pills and are having frequent bladder infections, discuss with your doctor. Follow Up: Return to this facility or see your doctor if ALL symptoms are not gone after three days of treatment. Get Prompt Medical Attention if any of the following occur: Fever of 100.4F (38C) or higher, or as directed by your healthcare provider No improvement by the third day of treatment Increasing back or abdominal pain Repeated vomiting; unable to keep medicine down Weakness, dizziness or fainting Vaginal discharge Pain, redness or swelling in the labia (outer vaginal area) Viral Gastroenteritis (6Yr-Adult) Gastroenteritis is another name for thestomach flu.It is most often caused by a virus that affects the stomach and intestinal tract. Symptoms include stomach cramping and fever, vomiting and/or diarrhea, and can last from 2 to 7 days. The danger from repeated vomiting or diarrhea is dehydration. This is the loss of too much water and minerals from the body. When this occurs, body fluids must be replaced. Antibiotics are not effective for this illness, but simple home treatment will be helpful. Home Care If symptoms are severe, rest at home for the next 24 hours. Avoid tobacco, caffeine, and alcohol use, which can worsen symptoms. Acetaminophen (Tylenol) or ibuprofen (Motrin, Advil) may be usedfor fever or pain unless another medication was prescribed. NOTE: If you have chronic liver or kidney disease or ever had a stomach ulcer or GI bleeding, talk with your doctor before using these medicines. Aspirin should never be used in anyone under 18 years of age who is ill with a fever. It may cause severe liver damage. If medicines for diarrhea or vomiting were prescribed, be sure they are takenonly as directed. If vomiting, drink small amounts of clear fluids (such as water, sports drinks, clear sodas) at frequent intervals to prevent dehydration. Start with 1 to 2 tablespoons every 10 minutes. Once vomiting stops, follow these guidelines: During The First 12 To 24 Hours follow the diet below: Beverages: Sport drinks like Gatorade, soft drinks without caffeine; joseph nila, mineral water (plain or flavored), decaffeinated tea and coffee. Soups: Clear broth, consomm and bouillon Desserts: Plain gelatin (Jell-O), Popsicles and fruit juice bars. During The Next 24 Hours you may add the following to the above: Hot cereal, plain toast, bread, rolls, crackers Plain noodles, rice, mashed potatoes, chicken noodle or rice soup Unsweetened canned fruit (avoid pineapple), bananas Limit fat intake to less than 15 grams per day by avoiding margarine, butter, oils, mayonnaise, sauces, gravies, fried foods, peanut butter, meat, poultry, and fish. Limit fiber; avoid raw or cooked vegetables, fresh fruits (except bananas), and bran cereals. Limit caffeine and chocolate. Do not use spices or seasonings except salt. During The Next 24 Hours The patient can gradually resume a normal diet as symptoms lessen. Preventing Spread Hand washing with soap and water is the best way to prevent the spread of viruses. Caregivers should wash their hands before andafter touching the sick person. The sick person, as well as everyone in the family,should wash their hands after using the toilet and before meals. Clean the toilet after each use. People with diarrhea should not prepare food for others. If you are preparing your own foods, wash your hands before and after. Follow Up with your doctor as advised. Call your doctor if you are not improving over the next 2 to 3 days. If a stool (diarrhea) sample was taken, you may call in 2 days (or as directed) for the results. Get Prompt Medical Attention if any of the following occur: Increasing abdominal pain Continued vomiting (unable to keep liquids down) Frequent diarrhea (more than 5 times a day) Blood in vomit or stool (black or red color) Dark urine, reduced urine output, or extreme thirst Weakness, dizziness, fainting Drowsiness, confusion, stiff neck, or seizure Fever of 100.4F (38C) oral or higher, not better with fever medication New rash Dizziness [Uncertain Cause] Dizziness is a common symptom sometimes described as "lightheadedness" or feeling like you are going to faint. If it lasts for only a few seconds and is related to changes in position (such as getting up after lying or sitting for a long time), it is usually not a sign of anything serious. Dizziness that lasts for minutes to hours, or comes on for no apparent reason, may be a sign of a more serious problem (such as dehydration, a medicine reaction, disease of the heart or brain). Today's exam did not show an exact cause for your dizzy spell . Sometimes additional tests are required before a cause can be found. Therefore, it is important to follow up with your doctor if your symptoms continue. Home Care: 1) If a dizzy spell occurs and lasts more than a few seconds, lie down until it passes. If you are lying down, then you cannot hurt yourself by falling if you do faint. 2) Do not drive or operate dangerous equipment until the dizzy spells have stopped for at least 48 hours. 3) If dizzy spells occur with sudden standing, this may be a sign of mild dehydration. Drink extra fluids over the next few days. 4) If you recently started a new medicine or if you had the dose of a current medicine increased (especially blood pressure medicine), talk with the prescribing doctor about your symptoms. Dose adjustments may be needed. Follow Up with your doctor for further evaluation within the next seven days, if your symptoms continue. Get Prompt Medical Attention if any of the following occur: -- Worsening of your symptoms -- Fainting, headache or seizure -- Repeated vomiting -- Feeling like you or the room is spinning -- Chest, arm, neck, back or jaw pain -- Palpitations (the sense that your heart is fluttering or beating fast or hard) -- Shortness of breath -- Blood in vomit or stool (black or red color) -- Weakness of an arm or leg or one side of the face -- Difficulty with speech or vision Near-Fainting:Uncertain Cause Fainting (syncope) is a temporary loss of consciousness ("passing out"). It occurs when blood flow to the brain is reduced. Near-fainting ("near-syncope") is like fainting, but you do not fully "pass out." The common minor causes of near fainting include sudden fear, pain, emotional stress, overexertion, or quickly standing up after sitting or lying for a long time. The more serious causes for near fainting are due to either a very slow or very fast heart beat, dehydration, anemia, blood loss, problems related to the heart, or taking too much high blood pressure medicine. The exact cause of your episode is not certain. More tests may be required. Therefore, it is important that you follow up with your doctor as advised. Home Care: 1) Rest today. Resume your normal activities as soon as you are feeling back to normal. 2) If you become light-headed or dizzy, lie down right away or sit with your head between your knees. 3) Because we do not know the exact cause of your near fainting spell, another spell could occur without warning. Therefore, do not drive a car or use dangerous equipment. D o not take a bath alone (use a shower instead). Do not swim alone. You can resume these activities when your doctor says that you are no longer in danger of having a near fainting spell. 4) Stay well hydrated by drinking enough fluid each day. Follow Up with your doctor as instructed. Get Prompt Medical Attention if any of the following occur: -- Another fainting spell occurs, and it is not explained by the common causes listed above -- Chest, arm, neck, jaw, back or abdominal pain -- Shortness of breath -- Weakness, tingling or numbness in one side of the face, one arm or leg -- Slurred speech, confusion, trouble walking or seeing -- Seizure -- Blood in vomit, stools (black or red color) -- (In women) unexpected vaginal bleeding Viral Respiratory Illness [Adult] You have an Upper Respiratory Illness (URI) caused by a virus. This illness is contagious during the first few days. It is spread through the air by coughing and sneezing or by direct contact (touching the sick person and then touching your own eyes, nose or mouth). Most viral illnesses go away within 7-10 days with rest and simple home remedies. Sometimes, the illness may last for several weeks. Antibiotics will not kill a virus and are generally not prescribed for this condition. Home Care: 1) If symptoms are severe, rest at home for the first 2-3 days. When you resume activity, don't let yourself get too tired. 2) Avoid being exposed to cigarette smoke (yours or others). 3) Tylenol (acetaminophen) or ibuprofen (Advil, Motrin) will help fever, muscle aching and headache. (Persons under 18 with fever should not take aspirin since this may cause liver damage.) 4) Your appetite may be poor, so a light diet is fine. Avoid dehydration by drinking 6-8 glasses of fluids per day (water, soft drinks, juices, tea, soup). Extra fluids will help loosen secretions in the nose and lungs. 5) Vrbq-jsa-flwmgvg cold medicines will not shorten the length of time youre sick, but they may be helpful for the following symptoms: cough (Robitussin DM); sore throat (Chloraseptic lozenges or spray); nasal and sinus congestion (Actifed, Sudafed, Chlortrimeton). Follow Up with your doctor or as advised if you dont improve over the next week. Get Prompt Medical Attention if any of the following occur: -- Cough with lots of colored sputum (mucus) or blood in your sputum -- Chest pain, shortness of breath, wheezing or have trouble breathing -- Severe headache; face, neck or ear pain -- Fever over 100.4 F (38.0 C) for more than three days -- You cant swallow due to throat pain Viral Syndrome (Adult) A viral illness may cause a number of symptoms. The symptoms depend on the part of the body that the virus affects. If it settles in the nose, throat, and lungs, it may cause cough, sore throat, congestion, and sometimes headache. If it settles in the stomach and intestinal tract, it may cause vomiting and diarrhea. Sometimes it causes vague symptoms like "aching all over," feeling tired, loss of appetite, or fever. A viral illness usually lasts1 to 2 weeks, but sometimes it lasts longer. In some cases, a more serious infection can look like a viral syndrome in the first few days of the illness. You may need anotherexam and additional teststo know the difference.Watch for the warning signs listed below. Home care Follow these guidelines for taking care of yourself at home: If symptoms are severe, rest at home for the first 2 to 3 days. Stay away from cigarette smoke - both your smoke and the smoke from others. You may useacetaminophen or ibuprofen for fever, muscle aching, and headache, unless another medicine was prescribed for this.If you have chronic liver or kidney disease or ever had a stomach ulcer or GI bleeding, talk with your doctor before using these medicinesNo one who is younger than 18 and ill with a fever should take aspirin. It may cause severe liver damage. Your appetite may be poor, so a light diet is fine. Avoid dehydration by drinking 8 to 12 8-ounce glasses of fluids each day. This may include water; orange juice; lemonade; apple, grape, and cranberry juice; clear fruit drinks; electrolyte replacement and sports drinks; and decaffeinated teas and coffee. If you have been diagnosed with a kidney disease, ask your doctor how much and what types of fluids you should drink to prevent dehydration. If you have kidney disease, drinking too much fluid can cause it build up in the your body and be dangerous to your health. Wdzk-qmw-[id number] remedies won't shorten the length of the illness but may be helpful forcough, sore throat; and nasal and sinus congestion. Don't use decongestants if you have high blood pressure. Follow-up care Follow up with your health care provider if you do not improve over the next week. When to seek medical care Get prompt medical attention if any of these occur: Cough with lots of colored sputum (mucus) or blood in your sputum Chest pain, shortness of breath, wheezing, or difficulty breathing Severe headache; face, neck, or ear pain Severe, constant pain in the lower right side of your belly (abdominal) Continued vomiting (cant keep liquids down) Frequent diarrhea (more than 5 times a day); blood (red or black color) or mucus in diarrhea Feeling weak, dizzy, or like you are going to faint Extreme thirst Fever of 100.4 F (38 C) oral or higher, not better with fever medication Convulsion Ondansetron Oral disintegrating tablet What is this medicine? ONDANSETRON (on [place] se neil) is used to treat nausea and vomiting caused by chemotherapy. It is also used to prevent or treat nausea and vomiting after surgery. How should I use this medicine? These tablets are made to dissolve in the mouth. Do not try to push the tablet through the foil backing. With dry hands, peel away the foil backing and gently remove the tablet. Place the tablet in the mouth and allow it to dissolve, then swallow. While you may take these tablets with water, it is not necessary to do so. Talk to your practicing md anesthesiologist regarding the use of this medicine in children. Special care may be needed. What side effects may I notice from receiving this medicine? Side effects that you should report to your doctor or health care management coordinator as soon as possible: allergic reactions like skin rash, itching or hives, swelling of the face, lips, or tongue breathing problems dizziness fast or irregular heartbeat feeling faint or lightheaded, falls fever and chills swelling of the hands and feet tightness in the chest Side effects that usually do not require medical attention (report to your doctor or health care management coordinator if they continue or are bothersome): constipation or diarrhea headache What may interact with this medicine? Do not take this medicine with any of the following medications: -apomorphine -cisapride -dofetilide -dronedarone -pimozide -thioridazine -ziprasidone This medicine may also interact with the following medications: -carbamazepine -phenytoin -rifampicin -tramadol -other medicines that prolong the QT interval (cause an abnormal heart rhythm) What if I miss a dose? If you miss a dose, take it as soon as you can. If it is almost time for your next dose, take only that dose. Do not take double or extra doses. Where should I keep my medicine? Keep out of the reach of children. Store between 2 and 30 degrees C (36 and 86 degrees F). Throw away any unused medicine after the expiration date. What should I tell my health care provider before I take this medicine? They need to know if you have any of these conditions: heart disease history of irregular heartbeat liver disease low levels of magnesium or potassium in the blood an unusual or allergic reaction to ondansetron, granisetron, other medicines, foods, dyes, or preservatives or trying to get breast-feeding What should I watch for while using this medicine? Check with your doctor or health care management coordinator as soon as you can if you have any sign of an allergic reaction. Nitrofurantoin, Nitrofurantoin, Macrocrystalline Oral capsule What is this medicine? NITROFURANTOIN (avila yanes bhavesh SKYLER toyn) is an antibiotic. It is used to treat urinary tract infections. How should I use this medicine? Take this medicine by mouth with a glass of water. Follow the directions on the prescription label. Take this medicine with food or milk. Take your doses at regular intervals. Do not take your medicine more often than directed. Do not stop taking except on your doctor's advice. Talk to your practicing md anesthesiologist regarding the use of this medicine in children. While this drug may be prescribed for selected conditions, precautions do apply. What side effects may I notice from receiving this medicine? Side effects that you should report to your doctor or health care management coordinator as soon as possible: allergic reactions like skin rash or hives, swelling of the face, lips, or tongue chest pain cough difficulty breathing dizziness, drowsiness fever or infection joint aches or pains pale or blue-tinted skin redness, blistering, peeling or loosening of the skin, including inside the mouth tingling, burning, pain, or numbness in hands or feet unusual bleeding or bruising unusually weak or tired yellowing of eyes or skin Side effects that usually do not require medical attention (report to your doctor or health care management coordinator if they continue or are bothersome): dark urine diarrhea headache loss of appetite nausea or vomiting temporary hair loss What may interact with this medicine? antacids containing magnesium trisilicate probenecid quinolone antibiotics like ciprofloxacin, lomefloxacin, norfloxacin and ofloxacin sulfinpyrazone What if I miss a dose? If you miss a dose, take it as soon as you can. If it is almost time for your next dose, take only that dose. Do not take double or extra doses. Where should I keep my medicine? Keep out of the reach of children. Store at room temperature between 15 and 30 degrees C (59 and 86 degrees F). Protect from light. Throw away any unused medicine after the expiration date. What should I tell my health care provider before I take this medicine? They need to know if you have any of these conditions: anemia diabetes [id number] dehydrogenase deficiency kidney disease liver disease lung disease other chronic illness an unusual or allergic reaction to nitrofurantoin, other antibiotics, other medicines, foods, dyes or preservatives or trying to get breast-feeding What should I watch for while using this medicine? Tell your doctor or health care management coordinator if your symptoms do not improve or if you get new symptoms. Drink several glasses of water a day. If you are taking this medicine for a long time, visit your doctor for regular checks on your progress. If you are diabetic, you may get a false positive result for sugar in your urine with certain brands of urine tests. Check with your doctor. You have been given the following additional information: Hypertension, Established Bladder Infection, Female (Adult) Gastroenteritis, Viral (6Y-Adult) Dizziness, Unk Cause Near Syncope, Unknown Uri, Viral, No Abx (Adult) Viral Syndrome (Adult) Ondansetron Oral disintegrating tablet Nitrofurantoin, Nitrofurantoin, Macrocrystalline Oral capsule (No driving if any symptoms of lightheadedness). Rest. Do not work for three days. (Electronically signed by Allan Nair DO 08/30/2016 12:23)
== END 2016-08-29 14:15 | disposition home or self-care (01) ==
LOC: ED SRH 10:54
DX: R11.0 Nausea (principal); R42 Dizziness and giddiness; I10 Essential (primary) hypertension; N30.00 Acute cystitis without hematuria; J00 Acute nasopharyngitis [common cold]; B34.9 Viral infection, unspecified
CPT/HCPCS: 90004; 90100; 90469; 90616; 91320; 91556; 92530; 92610; 92720; 92760; 92761; 92762; 92763; 92764; 92765; 92766; 92767; 93140; 94060; 95059